=== PATIENT | female | born 1960 | race Two or more races ===

== ENCOUNTER 2018-10-31 12:48 | Outpatient (CLI) | payer OTHER | END 2018-10-31 15:48 | disposition home or self-care (01) | LOC: RAD 12:48 | DX: M75.112 Incomplete rotator cuff tear or rupture of left shoulder, not specified as traumatic (principal) ==

== ENCOUNTER 2020-02-26 12:03 | Emergency (ER) | payer OTHER ==
[~2020-02-26] VITALS: Ht 152.4 cm; Wt 93.0 kg
[2020-02-26] MEDS ORDERED: ADULT LOW DOSE81 M1 PO (12:35)
[2020-02-26] MEDS ORDERED: LOSARTAN POTAS100 MG PO (12:35)
[2020-02-26] MEDS ORDERED: B-125000 MC2 PO (12:36)
[2020-02-26] MEDS ORDERED: VITAMIN C500 M1 PO (12:36)
[2020-02-26] MEDS ORDERED: VITAMIN E400 UNI6 PO (12:36)
[2020-02-26] MEDS ORDERED: MONTELUKAST SOD10 MG PO (12:36)
[2020-02-26] MEDS ORDERED: B-121000 MC2 SL (12:37)
[2020-02-26] MEDS ORDERED: ZANAFLEX2 MG PO (12:37)
[2020-02-26] MEDS ORDERED: FLONASE SENSIM5.9 ML NS (12:37)
[2020-02-26] MEDS ORDERED: LASIX20 MG PO (12:37)
[2020-02-26] MEDS ORDERED: PREVACID30 MG PO (12:37)
[2020-02-26] MEDS ORDERED: DULOXETINE HCL60 MG PO (12:38)
[2020-02-26] MEDS ORDERED: DOXEPIN HCL100 MG PO (12:38)
[2020-02-26] MEDS ORDERED: BUSPIRONE HCL15 MG PO (12:38)
[2020-02-26] MEDS ORDERED: ZYRTEC10 M3 PO (13:59)
[2020-02-26] MEDS ORDERED: FLONASE16 GM NASAL (13:59)
== END 2020-02-26 14:04 | disposition home or self-care (01) ==
LOC: ER 12:03
DX: S91.331A Puncture wound without foreign body, right foot, initial encounter (principal); W22.8XXA Striking against or struck by other objects, initial encounter; Y93.01 Activity, walking, marching and hiking; Y92.89 Other specified places as the place of occurrence of the external cause; Y99.8 Other external cause status

== ENCOUNTER 2020-05-20 13:33 | Emergency (ER) | payer OTHER ==
[~2020-05-20] VITALS: Ht 152.4 cm; Wt 90.7 kg
[~2020-05-20 13:33] MED LIST: ADULT LOW DOSE81 M1 PO; B-121000 MC2 SL; B-125000 MC2 PO; BUSPIRONE HCL15 MG PO; DOXEPIN HCL100 MG PO; DULOXETINE HCL60 MG PO; FLONASE SENSIM5.9 ML NS; FLONASE16 GM NASAL; LASIX20 MG PO; LOSARTAN POTAS100 MG PO; MONTELUKAST SOD10 MG PO; PREVACID30 MG PO; VITAMIN C500 M1 PO; VITAMIN E400 UNI6 PO; ZANAFLEX2 MG PO; ZYRTEC10 M3 PO
[2020-05-20] MEDS ORDERED: TENORMIN50 M1 (13:55)
== END 2020-05-20 20:27 | disposition home or self-care (01) ==
LOC: ER 13:33
DX: R10.9 Unspecified abdominal pain (principal); Z20.828 Contact with and (suspected) exposure to other viral communicable diseases

== ENCOUNTER → 2020-12-21 | Outpatient (CLI) | payer OTHER ==
[~2020-12-21] MED LIST changes: +TENORMIN50 M1
== END | disposition home or self-care (01) ==
LOC: MAMO-SONO 12:45 → SONOGRAMA 12:52
PROVIDERS: ATTEND Physical Medicine & Rehabilitation Hospice and Palliative Medicine
DX: M79.642 Pain in left hand (principal); M25.532 Pain in left wrist; M25.552 Pain in left hip